=== PATIENT | male | born 1940 | race Caucasian/White ===

== ENCOUNTER 2024-09-02 13:47 | Emergency (ER) | payer MEDICARE, SELFPAY ==
[2024-09-02 14:09] VITALS: BP 154/75
--- NOTE | 2024-09-02 14:14 | ED.GENMED ---
ED Provider Triage
<Elida Saab HOME CARE GIVER - Last Filed: 09/02/24 14:19>
-
Patient seen by provider in Triage?: Seen in Triage
Attestation: A medical screening examination has been initiated by a qualified medical provider. Based on the assessment performed at this time, it has been determined that an emergent medical condition may exist and the patient has been informed
that further medical evaluation and possible additional diagnostic testing may be needed.
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 Tylenol with not much relief. Saw PCP the day after and told
it was bruised, no hernia. 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
GENERAL: Alert , in no apparent distress
EYE: No visual abnormalities.
ENT: No visible abnormalities.
LUNGS: No acute respiratory distress
NEUROLOGICAL: Alert and oriented
SKIN: Skin intact. No visible changes.
MUSCULOSKELETAL: Tender upper right groin area. Ambulates well. Moving extremities normally
PSYCH: Normal and appropriate interaction.
This is a medical evaluation conducted in person to initiate diagnostic evaluation and provide initial therapeutics. Please see further documentation by the treating clinician.
History of Present Illness
<Elida Saab HOME CARE GIVER - Last Filed: 09/02/24 14:19>
General
Chief Complaint: Male Genito-Urinary Symptoms
Time Seen by Provider: 09/02/24 15:50
<Peng Schroeder PA-C - Last Filed: 09/02/24 18:54>
History of Present Illness
History of Present Illness:
84-year-old female presents the emergency department for evaluation of right groin pain for the past 2-1/2 weeks. He states he walked into the corner of a dresser and struck the corner of the dresser directly onto the right suprapubic area. He is
able to walk however has severe pain on occasion that limits his ability to continue to walk. Denies any radicular symptoms in the legs. No upper abdominal pain, fevers, or vomiting. No difficulty urinating.
Past History
<Elida Saab HOME CARE GIVER - Last Filed: 09/02/24 14:19>
Past History
ED Past Medical History: CAD, GERD, HTN, Hypercholesterolemia, [place], Valvular disease (Aortic stenosis) and Other (Arthritis two types, Melanoma,)
ED Past Surgical History: Bowel resection, Cardiac (CABG, Stents) and Other (CABG, colon resection with colostomy and colostomy reversal)
Social History
Tobacco: Non-smoker
Alcohol: None
Drug: None
Personal:
Living: with family
Employment: Employed
Family History
Family History: Other (Noncontributory)
Review of Systems
<Peng Schroeder PA-C - Last Filed: 09/02/24 18:54>
Review of Systems
Allergies reviewed?: Yes
All Other Systems: ROS reviewed and negative except as documented in HPI and ROS
Phy Exam
<Peng Schroeder PA-C - Last Filed: 09/02/24 18:54>
Physical Exam
Physical Exam:
GEN: Well appearing, NAD, WDWN
HEENT: Oral mucosa moist, no scleral icterus
Cardiac: Regular rate
Lung: No respiratory distress, no tachypnea
MSK: No gross deformity or injuries. Focal tenderness to the right suprapubic area directly over the pubic bone, no palpable masses. Right inguinal canal appears to be normal with no hernias, internal pulsation strong and nontender, no right lower
extremity edema
Skin: Good color, no pallor or jaundice, no rashes
Neuro: AO x3, moves all extremities freely
Psych: Calm, cooperative
Course
<Elida V. Day, HOME CARE GIVER - Last Filed: 09/02/24 14:19>
Orders/Labs/Results
Orders:
Orders
09/02/24 16:02
CR Hip - RT w/wo Pel 2-3 Vw* Urgent
Comment:
Reason For Exam: R hip/groin pain
Include a pelvis x-ray?: Yes
Vital Signs
Initial and Last Documented VS:
Initial Vital Signs
Temp Pulse Resp BP Pulse Ox
98.0 F 62 16 154/75 95
09/02/24 14:09 09/02/24 14:09 09/02/24 14:09 09/02/24 14:09 09/02/24 14:09
Last Documented Vital Signs
Temp Pulse Resp BP Pulse Ox
98.0 F 62 16 148/74 98
09/02/24 14:09 09/02/24 16:45 09/02/24 16:45 09/02/24 16:45 09/02/24 16:45
<Peng Schroeder PA-C - Last Filed: 09/02/24 18:54>
Orders/Labs/Results
Orders:
Orders
09/02/24 16:02
CR Hip - RT w/wo Pel 2-3 Vw* Urgent
Comment:
Reason For Exam: R hip/groin pain
Include a pelvis x-ray?: Yes
Vital Signs
Initial and Last Documented VS:
Initial Vital Signs
Temp Pulse Resp BP Pulse Ox
98.0 F 62 16 154/75 95
09/02/24 14:09 09/02/24 14:09 09/02/24 14:09 09/02/24 14:09 09/02/24 14:09
Last Documented Vital Signs
Temp Pulse Resp BP Pulse Ox
98.0 F 62 16 148/74 98
09/02/24 14:09 09/02/24 16:45 09/02/24 16:45 09/02/24 16:45 09/02/24 16:45
<Peng Schroeder PA-C - Last Filed: 09/02/24 18:54>
MDM/Problems Addressed
MDM/Problems Addressed:
X-rays show no evidence for acute pathology. Doubt vascular etiology. Recommend NSAIDs, do not see indication for CT or further advanced imaging at this time
<Peng Schroeder PA-C - Last Filed: 09/02/24 18:54>
*Critical Care Note
Total Time (30-74mins, 75-104mins- exclusive of procedures): Not Applicable
ED Attending Note
<Elida Saab HOME CARE GIVER - Last Filed: 09/02/24 14:19>
-
Portions of this chart may have been created with voice recognition software.� Occasional wrong word or��sound alike� substitutions may have occurred due to the inherent limitations of voice recognition software.
Discharge Plan
Departure
Patient Disposition: Home (Routine Discharge)
Date of Disposition: 09/02/24
Time of Disposition: 16:37
Patient with high blood pressure during this ER visit?: No
Discharge Problem:
Arthralgia of right side of pelvis
Prescriptions:
New
meloxicam 7.5 mg tablet
7.5 mg PO DAILY Qty: 10 0RF
No Action
multivitamin 1 EACH tablet
2 tab PO DAILY
aspirin 81 MG tablet,delayed release (DR/EC)
1 tab PO BID
ramipril 5 MG capsule
5 mg PO DAILY
calcium carbonate-vitamin D3 [Calcium 600 + D(3)] 1 EACH tablet
1 ea PO DAILY
Patient Comments:
with Mag 500mg
tamsulosin 0.4 MG capsule
0.4 mg PO HS
hydroxychloroquine 200 MG tablet
200 mg PO BID
rosuvastatin [Crestor] 40 MG tablet
40 mg PO DAILY
prednisone 1 MG tablet
2 mg PO BID
tadalafil [Cialis] 2.5 MG tablet
2.5 mg PO PRN PRN (Reason: sexuality activity)
amlodipine 5 MG tablet
5 mg PO QPM
acetaminophen 325 MG tablet
650 mg PO Q4HPRN PRN (Reason: GILES, mild pain, or fever >101F) 0RF
clopidogrel 75 MG tablet
75 mg PO DAILY Qty: 30 3RF
ascorbic acid (vitamin C) [Vitamin C] 2,000 MG tablet extended release
4,000 mg PO DAILY
esomeprazole magnesium 40 MG capsule,delayed release(DR/EC)
40 mg PO DAILY
Activity Restrictions/Additional Instructions:
The cause of your symptoms is not clear
Please take the anti inflammatory as prescribed for 7-10 days
Follow up with your primary care provider if your symptoms do not improve, as further imaging may be necessary
Interventions
Interventions:
*Risk Screen - Suicide Last Done: 09/02/24 14:09
*Neglect/Abuse Screening Last Done: 09/02/24 14:09
ED- Fall Risk Assessment Last Done: 09/02/24 16:10
*Nursing Disposition Last Done: 09/02/24 16:53
ED-Male Genitourinary Assessment Last Done: 09/02/24 16:10
Discharge Date and Time
Discharge Date/Time: 09/02/24 16:53
Print Language: CONGOLESE
[2024-09-02 16:45] VITALS: BP 148/74
== END 2024-09-02 16:53 | disposition home or self-care (01) ==
LOC: EMR 13:47
PROVIDERS: EMERGENCY PHYSICIAN Emergency Medicine; FAMILY PHYSICIAN Family Medicine
DX: R10.2 Pelvic and perineal pain (principal); I25.10 Atherosclerotic heart disease of native coronary artery without angina pectoris; K21.9 Gastro-esophageal reflux disease without esophagitis; I10 Essential (primary) hypertension; E78.00 Pure hypercholesterolemia, unspecified; I38 Endocarditis, valve unspecified; I35.0 Nonrheumatic aortic (valve) stenosis; M19.90 Unspecified osteoarthritis, unspecified site; Z85.820 Personal history of malignant melanoma of skin; Z95.1 Presence of aortocoronary bypass graft; Z95.5 Presence of coronary angioplasty implant and graft
CPT/HCPCS: 99284; 73502

== ENCOUNTER → 2025-02-03 13:21 | Outpatient (REF) | payer MEDICARE, SELFPAY | LOC: DHSLP 13:21 | PROVIDERS: ATTENDING PHYSICIAN Internal Medicine Cardiovascular Disease; FAMILY PHYSICIAN Family Medicine | DX: G47.30 Sleep apnea, unspecified (principal); R06.83 Snoring | CPT/HCPCS: 95800 ==

== ENCOUNTER → 2025-04-14 08:20 | Outpatient (REF) | payer MEDICARE, SELFPAY | LOC: HWRCS 08:20 | PROVIDERS: ATTENDING PHYSICIAN Internal Medicine Cardiovascular Disease; FAMILY PHYSICIAN Family Medicine | DX: I35.0 Nonrheumatic aortic (valve) stenosis (principal); I45.10 Unspecified right bundle-branch block | CPT/HCPCS: 93306 ==

== ENCOUNTER 2025-05-01 19:40 | Emergency (ER) | payer MEDICARE, SELFPAY ==
[2025-05-01] VITALS (9 sets, daily range): BP systolic 149–189; BP diastolic 70–83; PULSE 54–59; BMI 26.2
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
[2025-05-01] MEDS: NSS 1000 IV (20:17)
[2025-05-01 20:40] LABS: % Basophils 0.8 % (0-2); % Eosinophils 1.7 % (0-6); % Immature Granulocytes 0.4 % (0-0.5); % Lymphocytes 7.8 % (20.5-51.1); % Monocytes 11.2 % (1.7-9.3); % Neutrophils 78.1 % (42.2-75.2); Absolute Basophils 0.1 10^3/uL (0-0.2); Absolute Eosinophils 0.1 10^3/uL (0-0.7); Absolute Lymphocytes 0.6 10^3/uL (1.2-3.4); Absolute Monocytes 0.9 10^3/uL (0.1-0.6); Absolute Neutrophils 6.4 10^3/uL (1.4-6.5); Hematocrit 47.5 % (39.0-52.0); Hemoglobin 15.7 g/dL (13.0-18.0); Mean Corp Hgb Conc. 33.1 g/dL (33.0-37.0); Mean Corpuscular Hgb 25.7 pg (27.0-31.0); Mean Corpuscular Volume 77.9 fL (80.0-94.0); Mean Platelet Volume 9.2 fL (7.4-10.4); Nucleated Red Blood Cells % 0 % (-); Platelet Count 186 10^3/uL (130-400); White Blood Cell Count 8.2 10^3/uL (4.8-10.8)
[2025-05-01 21:01] LABS: ALT (SGPT) 36 U/L (0-50); AST (SGOT) 41 U/L (17-59); Albumin 4.3 g/dl (3.5-5.0); Alkaline Phosphatase 53 U/L (38-126); Blood Urea Nitrogen 32 mg/dl (9-20); Calcium 9.5 mg/dl (8.4-10.2); Carbon Dioxide 25 mmol/L (22-30); Chloride 109 mmol/L (98-107); Estimated Creatinine Clearance 57 ml/min; Glucose 134 mg/dl (70-99); Potassium 4.3 mmol/L (3.5-5.1); Sodium 141 mmol/L (135-145); Total Bilirubin 0.7 mg/dl (0.2-1.3); Total Protein 6.5 g/dl (6.3-8.2); eGFR > 60.00
== END 2025-05-01 22:47 | disposition home or self-care (01) ==
LOC: EMR 19:40
PROVIDERS: Nurse Practitioner; EMERGENCY PHYSICIAN Emergency Medicine; FAMILY PHYSICIAN Family Medicine
DX: R42 Dizziness and giddiness (principal); I25.10 Atherosclerotic heart disease of native coronary artery without angina pectoris; K21.9 Gastro-esophageal reflux disease without esophagitis; I10 Essential (primary) hypertension; E78.00 Pure hypercholesterolemia, unspecified; I35.0 Nonrheumatic aortic (valve) stenosis; I25.2 Old myocardial infarction; M19.90 Unspecified osteoarthritis, unspecified site; Z85.820 Personal history of malignant melanoma of skin; Z95.1 Presence of aortocoronary bypass graft; Z95.5 Presence of coronary angioplasty implant and graft
CPT/HCPCS: 99284; 70450; 80053; 85025; 93005

== ENCOUNTER 2025-06-23 13:50 | Emergency (ER) | payer MEDICARE, SELFPAY ==
[2025-06-23 14:03] VITALS: BP 115/63
[2025-06-23 14:25] LABS: Hematocrit 48.3 % (39.0-52.0); Hemoglobin 15.4 g/dL (13.0-18.0); Mean Corp Hgb Conc. 31.9 g/dL (33.0-37.0); Mean Corpuscular Volume 76.8 fL (80.0-94.0); Nucleated Red Blood Cells % 0 % (-); Platelet Count 229 10^3/uL (130-400); Red Cell Dist. Width 17.7 % (11.5-14.5)
[2025-06-23 14:44] LABS: ALT (SGPT) 33 U/L (0-50); AST (SGOT) 36 U/L (17-59); Albumin 4.2 g/dl (3.5-5.0); Alkaline Phosphatase 57 U/L (38-126); Blood Urea Nitrogen 29 mg/dl (9-20); Calcium 9.5 mg/dl (8.4-10.2); Carbon Dioxide 27 mmol/L (22-30); Chloride 105 mmol/L (98-107); Glucose 159 mg/dl (70-99); Lipase 47 U/L (23-300); Potassium 4.5 mmol/L (3.5-5.1); Sodium 138 mmol/L (135-145); Total Protein 6.6 g/dl (6.3-8.2); eGFR > 60.00
[2025-06-23 21:13] VITALS: BMI 23.1
[2025-06-23 21:24] VITALS: BP 158/75
[2025-06-23 21:27] VITALS: BP 158/75
[2025-06-23 22:00] VITALS: BP 150/82
[2025-06-23 23:00] VITALS: BP 142/71
[2025-06-24] VITALS: BP 155/71
[2025-06-24] MEDS: AUGMENTIN 875 MG/125 MG 1 TABLET PO (00:20)
--- NOTE | 2025-06-24 00:20 | ED.GENMED ---
History of Present Illness
General
Chief Complaint: Abdominal Symptoms
Source: patient
Exam Limitations: none
Time Seen by Provider: 06/23/25 21:11
Nursing documentation reviewed up to this point in time: agreed with
History of Present Illness
History of Present Illness:
85-year-old male with history as noted presents to the ER for evaluation of abdominal bloating and diarrhea. Patient reports he has had diarrhea triggered by certain foods for about a month. He had stool studies done recently that were negative
for C. difficile and Giardia. He says that over the past few days he has had increased lower abdominal bloating and continued diarrhea as well as flatulence. Came to the ER for assessment. He denies any fever or chills. Denies any vomiting.
Denies any other acute complaints.
Past History
Past History
ED Past Medical History: CAD, GERD, HTN, Hypercholesterolemia, [place], Valvular disease (Aortic stenosis) and Other (Arthritis two types, Melanoma,)
ED Past Surgical History: Bowel resection, Cardiac (CABG, Stents) and Other (CABG, colon resection with colostomy and colostomy reversal)
Social History
Tobacco: Non-smoker
Alcohol: None
Drug: None
Personal:
Living: with family
Employment: Employed
Family History
Family History: Other (Noncontributory)
Review of Systems
Review of Systems
All Other Systems: ROS reviewed and negative except as documented in HPI and ROS
Constitutional: Denies fever or chills
Respiratory: Denies trouble breathing
Cardiac: Denies chest pain
ABD/GI: Reports abdominal pain and diarrhea; Denies nausea or vomiting
: Denies flank pain
Musculoskeletal: Denies neck pain or back pain
Neurological: Denies dizzy or headache
Phy Exam
Physical Exam
Physical Exam:
General: Awake, alert, oriented x3; no acute distress
Head: Normocephalic, atraumatic
Eyes: Conjunctiva normal, sclera anicteric
Throat: Airway intact, handling secretions
Neck: Trachea midline, supple without meningismus
Lungs: Clear to auscultation bilaterally, no wheezing, rales, rhonchi
Heart: Regular rate and rhythm, no murmurs, gallops, or rubs
Abd: Soft, non distended, mildly tender in the lower abdomen but no peritoneal signs or masses; lower abdominal scar from prior surgery
Neuro: No gross deficits
Skin: no rash in area of concern
Extremities: Warm and well-perfused
Scores
Heart Failure Risk
Heart Failure Risk Score: Not Applicable
Heart Score for Chest Pain Patients
STEMI patient?: Not applicable
Withdrawal Assessment of Alcohol
Withdrawal Assessment Completed?: Not applicable
Course
Orders/Labs/Results
Orders:
Orders
06/23/25 14:10
Complete Blood Count/With Diff Urgent
Comprehensive Metabolic Panel Urgent
Lipase Urgent
06/23/25 21:42
CT Abd/pelvis W Iv Cont Urgent
Comment:
Reason For Exam: abd pain, diarrhea
06/24/25 00:16
Amoxicillin 875 mg/Clav 125 mg [Augmentin 875 mg/125 mg] 1 tablet PO NOW STA
Abnormal Lab Results
06/23/25
14:10
WBC 11.7 H 10^3/uL
(4.8-10.8)
RBC 6.29 H 10^6/uL
(4.70-6.10)
MCV 76.8 L fL
(80.0-94.0)
MCH 24.5 L pg
(27.0-31.0)
MCHC 31.9 L g/dL
(33.0-37.0)
RDW 17.7 H %
(11.5-14.5)
Absolute Neuts (auto) 10.1 H 10^3/uL
(1.4-6.5)
Absolute Lymphs (auto) 0.5 L 10^3/uL
(1.2-3.4)
Absolute Monos (auto) 0.9 H 10^3/uL
(0.1-0.6)
Neutrophils % 86.3 H %
(42.2-75.2)
Lymphocytes % 3.9 L %
(20.5-51.1)
BUN 29 H mg/dl
(9-20)
Glucose 159 H mg/dl
(70-99)
06/23/25 14:10
06/23/25 14:10
Vital Signs
Initial and Last Documented VS:
Initial Vital Signs
Temp Pulse Resp BP Pulse Ox
36.9 C 60 18 115/63 95
06/23/25 14:03 06/23/25 14:03 06/23/25 14:03 06/23/25 14:03 06/23/25 14:03
Last Documented Vital Signs
Temp Pulse Resp BP Pulse Ox
36.5 C 55 25 155/71 95
06/23/25 21:24 06/24/25 00:00 06/24/25 00:00 06/24/25 00:00 06/24/25 00:00
MDM/Problems Addressed
Differential Diagnosis Includes:
Diverticulitis, colitis, fecal impaction
MDM/Problems Addressed:
85-year-old male presents for evaluation of abdominal pain, bloating/flatulence and diarrhea. Vitals and exam as above. Labs were sent off including a CBC which showed marginal leukocytosis, CMP no clinically significant abnormalities. CT abdomen
pelvis reviewed shows acute uncomplicated diverticulitis. Patient is a reasonable candidate for outpatient treatment with oral antibiotics. Patient very comfortable with this plan. Spoke about return precautions and follow-up plan and all
questions were answered.
*Radiology
Radiology exam reviewed: radiology read reviewed
*Pulse Oximetry
SaO2: 95
Oxygen Mode of Delivery: Room air
Patient hypoxic: no (95%)
*Critical Care Note
Total Time (30-74mins, 75-104mins- exclusive of procedures): Not Applicable
Data Reviewed
Source: patient and spouse
ED Attending Note
-
Portions of this chart may have been created with voice recognition software.� Occasional wrong word or��sound alike� substitutions may have occurred due to the inherent limitations of voice recognition software.
Discharge Plan
Departure
Patient Disposition: Home (Routine Discharge)
Date of Disposition: 06/24/25
Time of Disposition: 00:16
Patient with high blood pressure during this ER visit?: Yes
Discharge Problem:
Acute diverticulitis
Instructions: [place] Diet, Diverticulitis - Discharge instructions
Prescriptions:
New
amoxicillin-pot clavulanate 875-125 mg tablet
1 tab PO BID 10 Days Qty: 20 0RF
No Action
multivitamin 1 EACH tablet
2 tab PO DAILY
aspirin 81 MG tablet,delayed release (DR/EC)
1 tab PO DAILY
calcium carbonate-vitamin D3 [Calcium 600 + D(3)] 1 EACH tablet
1 ea PO DAILY
Patient Comments:
with Mag 500mg
tamsulosin 0.4 MG capsule
0.4 mg PO HS
hydroxychloroquine 200 MG tablet
200 mg PO BID
rosuvastatin [Crestor] 40 MG tablet
40 mg PO DAILY
prednisone 1 MG tablet
2 mg PO BID
tadalafil [Cialis] 2.5 MG tablet
2.5 mg PO PRN PRN (Reason: sexuality activity)
amlodipine 5 MG tablet
2.5 mg PO QPM
acetaminophen 325 MG tablet
650 mg PO Q4HPRN PRN (Reason: GILES, mild pain, or fever >101F) 0RF
pantoprazole 40 mg Tablet,Delayed Release (Dr/Ec)
40 mg PO DAILY
olmesartan 40 mg Tablet
40 mg PO DAILY
ezetimibe 10 mg Tablet
10 mg PO DAILY
Referrals:
Matthias Petersen MD [Family Provider, Family Practice] - Follow up in 5-7 days
Activity Restrictions/Additional Instructions:
Thank you for visiting the Emergency Department at [facility].
1. Please schedule a follow up appointment as directed. Call first thing tomorrow morning to make an appointment.
2. If indicated, please take your medications as instructed and indicated on discharge paperwork.
3. If any of your symptoms do not improve, or persist, or become more severe within 6-12 hours, please return to the emergency department for further care.
4. Please return to the emergency department if you develop a headache, neck pain/stiffness, fever greater than 100.4F, chest pain, shortness of breath, persistent nausea, vomiting, slurred speech, difficulty walking, numbness/tingling, weakness,
signs of infection or any other symptoms that are worrisome to you.
Please call [phone] if you have any questions.
Interventions
Interventions:
*Risk Screen - Suicide Last Done: 06/23/25 14:03
*General Assessment Last Done: 06/23/25 14:03
*Neglect/Abuse Screening Last Done: 06/23/25 14:03
*ED- Fall Risk Assessment Last Done: 06/23/25 21:13
*ED COVID-19 Vaccine History Last Done: 06/23/25 21:13
PW-Nyigae-Xakvqsxlzl Assessment Last Done: 06/23/25 21:13
Discharge Date and Time
Print Language: HEBREW
== END 2025-06-24 00:48 | disposition home or self-care (01) ==
LOC: EMR 13:50
PROVIDERS: Emergency Medicine; EMERGENCY PHYSICIAN Emergency Medicine; FAMILY PHYSICIAN Family Medicine
DX: K57.32 Diverticulitis of large intestine without perforation or abscess without bleeding (principal); I25.10 Atherosclerotic heart disease of native coronary artery without angina pectoris; K21.9 Gastro-esophageal reflux disease without esophagitis; I10 Essential (primary) hypertension; E78.00 Pure hypercholesterolemia, unspecified; I25.2 Old myocardial infarction; I38 Endocarditis, valve unspecified; I35.0 Nonrheumatic aortic (valve) stenosis; M19.90 Unspecified osteoarthritis, unspecified site; Z85.820 Personal history of malignant melanoma of skin; Z95.1 Presence of aortocoronary bypass graft; Z95.5 Presence of coronary angioplasty implant and graft
CPT/HCPCS: 99284; 74177; 80053; 83690; 85025; Q9967